=== PATIENT | female | born 1935 | race Caucasian/White ===

== ENCOUNTER 2019-05-14 11:35 | Outpatient (CLI) | payer MEDICARE, SELFPAY ==
[2019-05-14 14:02] LABS: Blood Urea Nitrogen 16 mg/dL (8-23)
[2019-05-14] MEDS: iodixanol 320 mg/mL 100mL Btl IV (14:15)
--- NOTE | 2019-05-14 14:30 | CT_ITS ---
WS: [id number] CT CHEST TECHNIQUE: Contrast enhanced CT of the chest with coronal and sagittal reformatted images. CLINICAL INFORMATION: lung mass COMPARISON: CT September 28, 2018 DLP: 350.[address] scans at [facility] use at least one of these dose optimization techniques: automat ed exposure control; mA and/or kV adjustment per patient size (includes targeted exams where dose is matched to clinical indication); or iterative reconstruction. FINDINGS: Mild chronic emphysematous changes. No acute pulmonary infiltrates. Stable 5 mm subpleural opacity ri ght lower lobe laterally near the diaphragm. No other suspicious pulmonary parenchymal opacities. Nor mal caliber thoracic aorta. Vascular calcification including coronary. No mediastinal or hilar lymphadenopathy. Normal endobronch ial tree. No axillary lymphadenopathy. Normal visualized upper abdominal aorta with mild aortic calcification. Mild thoracic kyphosis. A few lucent lesions in the thoracic spine are unchanged. These may represent small atypical hemangiomas. CT/CT chest w con* [id number] IMPRESSION: 1. Stable 5 mm subpleural pulmonary nodule in the right lower lobe laterally. Recommend 12 month follow-up. 2. Mild chronic emphysematous changes. 3. No acute pulmonary infiltrates. 4. Vascular calcification including coronary.
== END 2019-05-14 11:36 | disposition home or self-care (01) ==
PROVIDERS: Family Provider Family Medicine; PCP Family Medicine; Visit Provider Thoracic Surgery (Cardiothoracic Vascular Surgery)
DX: R91.1 Solitary pulmonary nodule (principal); I25.10 Atherosclerotic heart disease of native coronary artery without angina pectoris
CPT/HCPCS: 36415; 71260; 82565; 84520

== ENCOUNTER 2020-02-25 14:08 | Outpatient (CLI) | payer MEDICARE, SELFPAY ==
--- NOTE | 2020-02-25 14:14 | XR_ITS ---
WS: [id number] Exam: XR DEXA axial skeleton* [id number] Date/Time of Exam: 02/25/2020 2:26 PM Reason For Exam: ASYMPTOMATIC MENOPAUSAL STATE DEXA BONE DENSITOMETRY Starline The L1-L4 bone mineral density measures 1.500 g/cm2. This corresponds to a T score of 2.7 and Z score of 5.0. Left femoral neck bone mineral density measures 0.828 g/cm2. This corresponds to T score of -1.4 and Z score of 1.1. Right femoral neck bone mineral density measures 0.843 g/cm2. This corresponds to a T score of -1.3 a nd Z score of 1.2. Mean femoral neck bone mineral density measures 0.836 g/cm2. This corresponds to a T score of -1.4 an d Z score of 1.2 XR/XR DEXA axial skeleton* [id number] IMPRESSION: Bone mineral density lies in the osteopenic range. Refer to detailed summary.
== END 2020-02-25 14:09 | disposition home or self-care (01) ==
PROVIDERS: Family Provider Family Medicine; PCP Family Medicine; Visit Provider Family Medicine
DX: Z78.0 Asymptomatic menopausal state (principal)
CPT/HCPCS: 77080

== ENCOUNTER 2020-07-29 12:45 | Outpatient (CLI) | payer MEDICARE, SELFPAY ==
--- NOTE | 2020-07-29 13:00 | CT_ITS ---
WS: [id number] CT CHEST WITH INTRAVENOUS CONTRAST HISTORY: R91.8 - Other nonspecific abnormal finding of lung field TECHNIQUE: Contiguous 5 mm axial imaging performed on the thorax. Coronal and sagittal reformats are submitted. All CT scans at [facility] use at least one of these dose optimization techniq ues: automated exposure control; mA and/or kV adjustment per patient size (includes targeted exams wh ere dose is matched to clinical indication); or iterative reconstruction. CONTRAST: Visipaque 320; 95 mL IV. DLP: 542.72 mGycm COMPARISON: 05/14/2019 and 09/28/2018 Lungs and central airway: Mild chronic emphysema. Subpleural nodule in the RIGHT lower lobe with pleu ral hiding measuring 5 mm is stable over several prior years. There is an additional stable 4 mm nodu le in the LEFT lower lobe. No new or increasing size of pulmonary nodules. Pleura: Normal. No pleural effusion. Heart and pericardium: Mild enlargement of the heart chambers. No pericardial effusion. Mediastinum and dmitriy: No mediastinum or hilar adenopathy. Vessels: Mild atherosclerosis of aorta. Pulmonary artery is slightly enlarged. Chest wall and lower neck: No soft tissue masses. Upper abdomen: Visualized liver is negative. No adrenal mass. Cortical thinning upper pole of each ki dney. Osseous structures: Atherosclerotic changes continue into the suprarenal aorta. Slight increased thor acic kyphosis. CT/CT chest w con* [id number] IMPRESSION: 1. No change in the subpleural nodule in the RIGHT lower lobe over multiple pr ior years. Due to long-term stability no additional follow-up necessary. 2. Chronic emphysema and atherosclerosis aorta. No adenopathy. 3. Mild cardiomegaly.
[2020-07-29 13:25] LABS: Blood Urea Nitrogen 13 mg/dL (8-23)
[2020-07-29] MEDS: iohexol 300 mg/mL 100 mL Btl IV (13:36)
== END 2020-07-29 12:46 | disposition home or self-care (01) ==
PROVIDERS: PCP Family Medicine; Visit Provider Thoracic Surgery (Cardiothoracic Vascular Surgery)
DX: R91.8 Other nonspecific abnormal finding of lung field (principal); R91.1 Solitary pulmonary nodule; J43.9 Emphysema, unspecified; I70.0 Atherosclerosis of aorta; I51.7 Cardiomegaly
CPT/HCPCS: 71260; 82565; 84520; Q9967

== ENCOUNTER → 2021-11-16 09:02 | Day surgery (SDC) | payer MEDICARE, SELFPAY ==
[2021-11-16] VITALS (9 sets, daily range): BP systolic 117–152; BP diastolic 60–77; PULSE 72–100; RESP 18; TEMP 36.3–37; O2SAT 93–96; BMI 21.2
[2021-11-16] MEDS: diphenhydrAMINE 25 mg Capsule PO (09:38)
[2021-11-16] MEDS: acetaminophen 500 mg Tablet 1000 MG PO (09:38)
[2021-11-16] MEDS: sodium chloride 0.9% (100 ml) 100 ML 10 ML ×2 (11:56→13:34)
[2021-11-16] MEDS: FUROsemide 10 mg/mL SDV 2mL 20 MG IVP (13:17)
== END ==
PROVIDERS: PCP Family Medicine; Visit Provider Family Medicine
DX: K92.2 Gastrointestinal hemorrhage, unspecified (principal); D64.9 Anemia, unspecified
CPT/HCPCS: 36415; 36430; 86850; 86900; 86920; J1940; P9040

== ENCOUNTER 2023-12-10 07:30 | Emergency (ER) | payer MEDICARE, SELFPAY ==
[2023-12-10] VITALS (17 sets, daily range): BP systolic 102–208; BP diastolic 56–149; PULSE 86–117; RESP 18–36; TEMP 37.4–39.5; O2SAT 90–99
--- NOTE | 2023-12-10 07:41 | CTR_ITS ---
PROCEDURE INFORMATION: Exam: CTA Head With Contrast, Arteriography Exam date and time: 12/10/2023 7:35 AM Age: 88 years old Clinical indication: Stroke-like symptoms; Altered mental status/memory loss; Additional info: Symptoms of CVA TECHNIQUE: Imaging protocol: Computed tomographic angiography of the head with contrast. Exam focused on the arteries. 3D rendering (Not supervised by radiologist): MIP and/or 3D reconstructed images were created by the technologist. Radiation optimization: All CT scans at this facility use at least one of these dose optimization techniques: automated exposure control; mA and/or kV adjustment per patient size (includes targeted exams where dose is matched to clinical indication); or iterative reconstruction. Contrast material: OMNI 350; Contrast volume: 100 ml; Contrast route: INTRAVENOUS (IV); COMPARISON: CT head thrombolytic [id number] 12/10/2023 7:30 AM RADIATION DOSE METRICS: Total DLP (mGy-cm): 568.19 FINDINGS: ANTERIOR CIRCULATION: Right internal carotid artery: Plaque without high-grade stenosis. No aneurysm. Right middle cerebral artery: No occlusion or significant stenosis. No aneurysm. Right anterior cerebral artery: The A1 segment is atretic. The distal right anterior cerebral artery is primarily supplied via a patent anterior communicating artery. No aneurysm. Left internal carotid artery: Plaque without high-grade stenosis. No aneurysm. Left middle cerebral artery: No occlusion or significant stenosis. No aneurysm. Left anterior cerebral artery: No occlusion or significant stenosis. No aneurysm. POSTERIOR CIRCULATION: Right vertebral artery: No occlusion or significant stenosis. No aneurysm. Left vertebral artery: No occlusion or significant stenosis. No aneurysm. Basilar artery: No occlusion or significant stenosis. No aneurysm. Right posterior cerebral artery: No occlusion or significant stenosis. No aneurysm. Left posterior cerebral artery: No occlusion or significant stenosis. No aneurysm. Brain: No definite mass, mass effect, or midline shift. Cerebral ventricles: No ventriculomegaly. Bones/joints: Unremarkable. No acute fracture. Soft tissues: Unremarkable. PROCEDURE INFORMATION: Exam: CTA Neck With Contrast Exam date and time: 12/10/2023 7:35 AM Age: 88 years old Clinical indication: Stroke-like symptoms; Altered mental status/memory loss; Additional info: Symptoms of CVA TECHNIQUE: Imaging protocol: Computed tomographic angiography of the neck with contrast. Exam focused on the cervical segments of the vasculature. 3D rendering (Not supervised by radiologist): MIP and/or 3D reconstructed images were created by the technologist. Radiation optimization: All CT scans at this facility use at least one of these dose optimization techniques: automated exposure control; mA and/or kV adjustment per patient size (includes targeted exams where dose is matched to clinical indication); or iterative reconstruction. Contrast material: OMNI 350; Contrast volume: 100 ml; Contrast route: INTRAVENOUS (IV); COMPARISON: CT head thrombolytic [id number] 12/10/2023 7:30 AM RADIATION DOSE METRICS: Total DLP (mGy-cm): 568.19 FINDINGS: Right common carotid artery: No stenosis. No dissection or occlusion. Right internal carotid artery: Mild plaque without high-grade stenosis. Right external carotid artery: No occlusion or stenosis of the origin. Left common carotid artery: No stenosis. No dissection or occlusion. Left internal carotid artery: Mild plaque without high-grade stenosis. Left external carotid artery: No occlusion or stenosis of the origin. Right vertebral artery: Mild plaque at the origin without high-grade stenosis. The right vertebral artery is dominant. Left vertebral artery: No stenosis. No dissection or occlusion. Soft tissues: Normal. No significant soft tissue swelling. Bones/joints: No acute fracture. CT/CT angio headneck* [id number] IMPRESSION: No large vessel stenosis or occlusion. IMPRESSION: No stenosis or occlusion. REFERENCES: NASCET CRITERIA. The degree of stenosis in the cervical segment of the internal carotid artery is based on NASCET criteria. Normal is no stenosis. Mild is less than 50% stenosis. Moderate is 50-69% stenosis. Severe is 70% to 99% stenosis. Total occlusion is no detectable patent lumen.
--- NOTE | 2023-12-10 07:41 | CTR_ITS ---
PROCEDURE INFORMATION: Exam: CT Head Without Contrast Exam date and time: 12/10/2023 7:30 AM Age: 88 years old Clinical indication: Stroke-like symptoms; Left facial droop; Additional info: Symptoms of acute stroke TECHNIQUE: Imaging protocol: Computed tomography of the head without contrast. Radiation optimization: All CT scans at this facility use at least one of these dose optimization techniques: automated exposure control; mA and/or kV adjustment per patient size (includes targeted exams where dose is matched to clinical indication); or iterative reconstruction. Other technique: STROKE PROTOCOL was implemented. COMPARISON: No relevant prior studies available. RADIATION DOSE METRICS: Total DLP (mGy-cm): 890.88 FINDINGS: Brain: There is prominence of the subarachnoid spaces compatible with atrophy. There is small-vessel ischemic change within the periventricular white matter. Cerebral ventricles: No ventriculomegaly. Paranasal sinuses: There is minimal mucosal thickening involving the paranasal sinuses. No air-fluid levels are identified. Mastoid air cells: Visualized mastoid air cells are well aerated. Bones: Unremarkable. No acute fracture. Soft tissues: Unremarkable. CT/CT head thrombolytic [id number] IMPRESSION: 1. Atrophy with small-vessel ischemic change. No definite acute intracranial findings. ASSESSMENT: ASPECTS ([place] Stroke Program Early CT Score) is 10.
--- NOTE | 2023-12-10 07:51 | XRR_ITS ---
PROCEDURE INFORMATION: Exam: XR Chest Exam date and time: 12/10/2023 8:01 AM Age: 88 years old Clinical indication: Cough and dyspnea; Additional info: Dyspnea/cough TECHNIQUE: Imaging protocol: Radiologic exam of the chest. Views: 1 view. COMPARISON: CT chest w con* [id number] 07/29/2020 1:29 PM FINDINGS: Lungs: Minimal linear scarring or atelectasis noted involving the lingula. No consolidated infiltrates are noted. Pleural spaces: Unremarkable. No pleural effusion. No pneumothorax. Heart/Mediastinum: The heart is enlarged. There is calcified plaque involving the aorta. Bones/joints: Old rib fracture noted on the right. XR/XR chest 1V portable [id number] IMPRESSION: 1. Cardiomegaly. 2. Minimal linear scarring or atelectasis involving the lingula.
--- NOTE | 2023-12-10 07:51 | ED_ITS ---
HPI - Neuro Symptoms/Deficit 2 General: Chief Complaint: Neuro Symptoms/Deficit Stated Complaint: left facial droop Time Seen by Provider: 12/10/23 07:30 History of Present Illness: 80-year-old female presents emergency ro om with reported last known well approximately 2230 last night was found by her daughter this morning nonresponsive EMS was called EMS called and a stroke alert reporting a left- sided facial droop. On arrival I seen patient in the CT suite. Initial evaluation she is nonresponsive to verbal stimuli does respond to painful stimuli. She has bawling sonorous respirations is moving all 4 extremities equally appears to have a bit of right sided facial droop. She cannot give any history. Minimal history in the old chart Related Data Home Medications Medication Instructions Recorded Confirmed amlodipine 10 mg tablet 10 mg PO DAILY 11/16/21 11/16/21 clopidogrel 75 mg tablet 75 mg PO DAILY 11/16/21 11/16/21 lisinopril 20 mg tablet 20 mg PO DAILY 11/16/21 11/16/21 metoprolol tartrate 50 mg tablet 50 mg PO DAILY 11/16/21 11/16/21 omeprazole 20 mg capsule,delayed 20 mg PO DAILY 11/16/21 11/16/21 release tramadol 50 mg tablet 50 mg PO DAILY 11/16/21 11/16/21 Allergies Allergy/AdvReac Type Severity Reaction Status Date / Time Penicillins Allergy ADR-Faintin Verified 11/16/21 09:40 g Review of Systems 2 General: Reports: ROS unobtainable due to medical condition and ROS unobtainable due to mental status [facility] ED 2 PFS: Medical History (Updated 12/12/23 @ 06:47 by Bandar Weller DO) CHF (congestive heart failure) Atrial fibrillation GERD (gastroesophageal reflux disease) HTN (hypertension) NIH stroke score 2 NIHSS: Level Of Consciousness - 1a: 3 Level Of Consciousness Questions - 1b: Neither Correct Level Of Consciousness Commands - 1c: Neither Correct Best Gaze - 2: Forced Deviation Visual Neumann - 3: Partial Hemianopia F acial Palsy - 4: Minor Paralysis Motor Arm Right - 5: No Drift Motor Arm Left - 5: No Drift Motor Leg Right - 6: No Drift Motor Leg Left - 6: No Drift Limb Ataxia - 7: Absent (Difficult to assess as patient cannot follow commands but moves all 4 extremities) Sensory - 8: Normal Best Language - 9: Mute; Global Aphasia Dysarthia - 10: Severe Dysarthia Extinction And Inattention - 11: 2 Score: Total Score: 18 Physical Exam 2 Const: ORIENTATION/CONSCIOUSNESS: Yes awake HENMT: COMMON NORMALS: normocephalic, atraumatic and hearing grossly normal bilaterally HEAD & SCALP: normocephalic and atraumatic Resp: COMMON NORMALS: normal respiratory effort, No retractions, No use of accessory muscles and clear to auscultation bilaterally AUSCULTATION: clear to auscultation bilaterally Cardio: COMMON NORMALS: regular rate, regular rhythm and No murmurs present (Cardio) RATE: regular rate RHYTHM: regular rhythm GI: COMMON NORMALS: Soft to palpation and No hepatosplenomegaly present A USCULTATION: Yes normoactive bowel sounds PALPATION: Yes Soft to palpation, No Tenderness to palpation present (GI), No Guarding due to palpation present (GI) and Yes No hepatosplenomegaly present Extremity: COMMON NORMALS: normal to inspection, capillary refill normal, no clubbing, cyanosis or edema, no calf tenderness and no pedal edema Skin: COMMON NORMALS: no rashes or lesions noted GENERAL SKIN EXAM: no rashes or lesions noted Course 2 Vital Signs: Vital signs: Vital Signs Temperature 99.3 F 12/10/23 21:56 Pulse Rate 94 12/10/23 22:09 Respiratory Rate 25 H 12/10/23 22:09 Blood Pressure 139/56 12/10/23 22:09 Pulse Oximetry 99 12/10/23 22:09 Oxygen Delivery Me thod Room Air 12/10/23 22:09 MDM - Neuro Symptoms/Deficit Medical Decision Making Patient is unresponsive she does intentionally move all extremities repositions herself using her arms and legs intentionally to avoid noxious stimuli. She has Bohling respirations with weakness on the right side of her face. Several assumptions made in scoring her on her NIH we get an 18. However she is outside of the window for any thrombolytics. No large vessel occlusion on CTA my suspicion is when initially seeing her that she may be septic. She is tachycardic and running a fever however she is also hypertensive. No acute findings on initial CT of the head. Patient was recently hospitalized at [facility] family did arrive later confirmed the last known well. They state that she was treated for a bladder infection in [place] we had already called for records from [place] it did take several hours to get this. Family also states that while they were in [place] a few days ago they had done a tick panel and they had told the family they thought it might be a tickborne illness. She had scans and labs done there CT scans were reported to them is normal the rest of her labs are also reported as normal. Ultimately we did get the records from [place] she had been on Vanco and meropenem which is what we had already started her on here. They had grown out E. coli in urine according to the discharge summary and adjust her medications based on the sensitivities panel from the urine culture. Based on her CT I suspect she is more septic and does not have an acute CVA. Since she is outside the window for thrombolytics and is not a embolectomy candidate that would just need to be monitored at this point. She did begin running relatively high fever up to 10 3.1. Respiratory panel was done as well was negative for COVID or other respiratory viral illnesses. Family requested transfer to [facility] because she was seen there previously. We also made attempts to get lab work from [place]. At change of shift she had been accepted at [facility] we had not received any records from [place] yet. We have a bed assignment we are pending transportation. Antibiotics have been initiated have discussed with the oncoming physician he will continue antibiotics until transfer is affected. Medical Records I reviewed the patient's medical records. Lab Data I reviewed the patient's lab results. 12/10/23 09:05 12/10/23 11:[address] 12/10/23 07:41 IMPRESSION: 1. Atrophy with small-vessel ischemic change. No definite acute intracranial findings. ASSESSMENT: ASPECTS ([place] Stroke Program Early CT Score) is 10. ADDENDUM: 12/10/23 0755 COMMENT: THIS REPORT CONTAINS FINDINGS THAT MAY BE CRITICAL TO PATIENT CARE. The exam findings were verbally communicated by me to BANDAR WELLER via telephone conference at 7:53 AM CDT on 12/10/2023. The findings were acknowledged and understood. Head/Neck CTA 12/10/23 07:41 IMPRESSION: No large vessel stenosis or occlusion. IMPRESSION: No stenosis or occlusion. REFERENCES: NASCET CRITERIA. The degree of stenosis in the cervical segment of the internal carotid artery is based on NASCET criteria. Normal is no stenosis. Mild is less than 50% stenosis. Moderate is 50-69% stenosis. Severe is 70% to 99% stenosis. Total occlusion is no detectable patent lumen. Chest X-Ray 12/10/23 07:51 IMPRESSION: 1. Cardiomegaly. 2. Minimal linear scarring or atelectasis involving the lingula. Chest/Abdomen/Pelvis CT 12/10/23 10:07 IMPRESSION: No acute findings. IMPRESSION: No acute findings. Laboratory Results WBC 18.10 10^3/uL (3.29-11.43) H 12/10/23 09:05 RBC 4.06 10^6/uL (3.85-5.65) 12/10/23 09:05 Hgb 12.20 g/dL (11.27-16.99) 12/10/23 09:05 Hct 38.9 % (36-47) 12/10/23 09:05 MCV 95.8 fl (85-98) 12/10/23 09:05 MCH 30.0 pg (27-33) 12/10/23 09:05 MCHC 31.4 g/dL (30-55) 12/10/23 09:05 RDW 13.2 % (12.1-15.1) 12/10/23 09:05 Plt Count 281 10^3/cmm (157-399) 12/10/23 09:05 MPV 10.4 fL (7.4-10.4) 12/10/23 09:05 Neut % (Auto) 89.2 % 12/10/23 09:05 Lymph % (Auto) 5.7 % 12/10/23 09:05 [place] % (Auto) 3.7 % 12/10/23 09:05 Eos % (Auto) 0.1 % 12/10/23 09:05 Baso % (Auto) 0.3 % 12/10/23 09:05 Neut # (Auto) 16.13 10^3/uL (1.8-7.7) H 12/10/23 09:05 Lymph # (Auto) 1.0 10^3/uL (0.8-4.8) 12/10/23 09:05 [place] # (Auto) 0.7 10^3/uL (0.2-0.9) 12/10/23 09:05 Eos # (Auto) 0.0 10^3/uL (0.0-0.8) 12/10/23 09:05 Baso # (Auto) 0.1 10^3/uL (0.0-0.1) 12/10/23 09:05 Nucleated RBC % (auto) 0 % 12/10/23 09:05 Nucleated RBCs # 0.0 /100WBC 12/10/23 09:05 ESR 120 mm/hr (0-15) H 12/10/23 09:05 PT 15.30 SECONDS (12.1-14.9) H 12/10/23 11:40 INR 1.17 (0.8-1.2) 12/10/23 11:40 APTT 31.3 SECONDS (23.9-36.7) 12/10/23 11:40 Specimen Type Arterial 12/10/23 08:08 Sample Site Brachial, left 12/10/23 08:08 ABG pH 7.48 (7.35-7.45) H 12/10/23 08:08 ABG pCO2 40.0 mmHg (35-45) 12/10/23 08:08 ABG pO2 60.5 mmHg (80.0-100.0) L 12/10/23 08:08 ABG PO2/FiO2 Ratio 288 12/10/23 08:08 ABG HCO3 29.7 mmol/L (22-26) H 12/10/23 08:08 ABG O2 Saturation 92.1 12/10/23 08:08 ABG Base Excess 5.7 mmol/L (-2.0-2.0) H 12/10/23 08:08 Mg Test Pos 12/10/23 08:08 A-a O2 Gradient 5.2 mmHg (5-10) 12/10/23 08:08 Hematocrit 37.6 % (37-47) 12/10/23 08:08 Hgb O2 Saturation 90.4 % (95-100) L 12/10/23 08:08 Carboxyhemoglobin 0.8 %THgb (0.4-20.1) 12/10/23 08:08 Methemoglobin 1.1 % (0.4-1.5) 12/10/23 08:08 Total Hemoglobin 12.3 g/dL (12-16) 12/10/23 08:08 Sodium 126.0 mmol/L (131-143) L 12/10/23 08:08 Potassium 4.2 mmol/L (3.5-5.0) 12/10/23 08:08 Glucose 146.0 mg/dL (70-115) H 12/10/23 08:08 Ionized Calcium 1.1 mmol/L (1.1-1.4) 12/10/23 08:08 O2 Delivery Device Room air 12/10/23 08:08 FiO2 21.0 % 12/10/23 08:08 Motion Graphics Designer ID Cak 12/10/23 08:08 Sodium 128 mmol/L (136-145) L 12/10/23 11:40 Potassium 3.7 mmol/L (3.5-5.1) 12/10/23 11:40 Chloride 88 mmol/L (98-107) L 12/10/23 11:40 Carbon Dioxide 25 mmol/L (22-29) 12/10/23 11:40 Anion Gap 18.7 (5-19) 12/10/23 11:40 BUN 16 mg/dL (8-23) 12/10/23 11:40 Creatinine 1.1 mg/dL (0.5-0.9) H 12/10/23 11:40 GFR Calculation Not Reportable 12/10/23 11:40 Glucose 163 mg/dL (65-115) H 12/10/23 11:40 POC Glucose 137 mg/dL (70-110) H 12/10/23 17:04 Calculated Osmolality 271 mOsm/kg (285-295) L 12/10/23 11:40 Lactic Acid 2.0 mmol/L (0.5-2.2) 12/10/23 11:40 Calcium 8.0 mg/dL (8.5-10.5) L 12/10/23 11:40 Total Bilirubin 0.6 mg/dL (0.15-1.2) 12/10/23 11:40 AST 30 U/L (0-32) 12/10/23 11:40 ALT 30 U/L (0-33) 12/10/23 11:40 Alkaline Phosphatase 77 U/L (35-105) 12/10/23 11:40 Creatine Kinase 111 U/L (26-192) 12/10/23 11:40 Troponin T Baseline 26 ng/L (0-10) H 12/10/23 09:05 Troponin T 120 Minute 28.99 ng/L (0-10) H 12/10/23 11:40 Delta Troponin T 2.99 ABS# (0-10) 12/10/23 11:40 Troponin T Hi Sens 6Hr 34.13 ng/L (0-10) H 12/10/23 15:14 Troponin T Hi Sens 6Hr Delta 8.13 ng/L (0-12) 12/10/23 15:14 C-Reactive Protein 16.9 mg/L (0.0-4.9) H 12/10/23 11:40 Total Protein 6.9 g/dL (6.6-8.7) 12/10/23 11:40 Albumin 3.7 g/dL (3.5-5.2) 12/10/23 11:40 Globulin 3.2 g/dL (1.3-4.6) 12/10/23 11:40 Lipase 35 U/L (13-60) 12/10/23 11:40 Urine Color Yellow (Yellow) 12/10/23 08:20 Urine Appearance Clear (CLEAR) 12/10/23 08:20 Urine pH 6.5 (5-7) 12/10/23 08:20 Ur Specific [place] 1.027 (1.005-1.030) 12/10/23 08:20 Urine Protein Trace (Negative) A 12/10/23 08:20 Urine Glucose (UA) Negative (Normal) 12/10/23 08:20 Urine Ketones Negative (Negative) 12/10/23 08:20 Urine Blood Non-haemolysed trace (Negative) 12/10/23 08:20 Urine Nitrate Negative (Negative) 12/10/23 08:20 Urine Bilirubin Negative (Negative) 12/10/23 08:20 Urine Urobilinogen 0.2 mg/dL (Negative) 12/10/23 08:20 Ur Leukocyte Esterase Negative (Negative) 12/10/23 08:20 Urine RBC 0-2 /hpf (0-2) 12/10/23 08:20 Urine WBC 0-5 /hpf (0-5) 12/10/23 08:20 Ur Squamous Epith Cells 11-20 /hpf (0-5) 12/10/23 08:20 Amorphous Sediment Not Reportable 12/10/23 08:20 Urine Bacteria None seen /hpf (NONE) 12/10/23 08:20 Hyaline Casts 1.62 /lpf 12/10/23 08:20 Urine Opiates Screen Negative ng/mL (Negative) 12/10/23 08:20 Ur Barbiturates Screen Negative ng/mL (Negative) 12/10/23 08:20 Ur Phencyclidine Scrn Negative ng/mL (Negative) 12/10/23 08:20 Ur Amphetamines Screen Negative ng/mL (Negative) 12/10/23 08:20 U Benzodiazepines Scrn Negative ng/mL (Negative) 12/10/23 08:20 Urine Cocaine Screen Negative ng/mL (Negative) 12/10/23 08:20 U Marijuana (THC) Screen Negative ng/mL (Negative) 12/10/23 08:20 Adenovirus (PCR) Not detected (NOT DETECT) 12/10/23 13:46 C. pneumoniae DNA (PCR) Not detected (NOT DETECT) 12/10/23 13:46 Coronavirus 229E (PCR) Not detected (NOT DETECT) 12/10/23 13:46 Human Metapneumovir PCR Not detected (NOT DETECT) 12/10/23 13:46 Influenza A (H1) PCR Not detected (NOT DETECT) 12/10/23 13:46 Influ A (H1/09) PCR Not detected (NOT DETECT) 12/10/23 13:46 Influenza A (H3) PCR Not detected (NOT DETECT) 12/10/23 13:46 Influenza Type A (PCR) Not detected (NOT DETECT) 12/10/23 13:46 Influenza Type B (PCR) Not detected (NOT DETECT) 12/10/23 13:46 M. pneumoniae (PCR) Not detected (NOT DETECT) 12/10/23 13:46 Parainfluenza 1 (PCR) Not detected (NOT DETECT) 12/10/23 13:46 Parainfluenza 2 (PCR) Not detected (NOT DETECT) 12/10/23 13:46 Parainfluenza 3 (PCR) Not detected (NOT DETECT) 12/10/23 13:46 Parainfluenza 4 (PCR) Not detected (NOT DETECT) 12/10/23 13:46 RSV Type A (PCR) Not detected (NOT DETECT) 12/10/23 13:46 RSV Type B (PCR) Not detected (NOT DETECT) 12/10/23 13:46 Entero/Rhino (PCR) Not detected (NOT DETECT) 12/10/23 13:46 SARS-CoV-2 (PCR) Not detected (NOT DETECT) 12/10/23 13:46 All radiology interpretation(s) finalized by discharge Discharge Plan Discharge Patient Disposition: Xfer Short-Term Hosp Clinical Impression: Septicemia, Altered mental status Condition: Stable Referrals: Chiquita Martinez MD [Primary Care Provider] - Coding Level of Care Code ED [employer] for Marianne John
--- NOTE | 2023-12-10 07:53 | ECG_ITS ---
[facility] Test Date: 2023-12-10 Pat Name: Amisha Lopez Department: Room: Gender: Female [employer] Manager: : 1935 Requested By: Bandar Morrell Order Number: [id number] Rajesh MD: Chris Eckert M.D. Measurements Intervals [place] Rate: 93 P: 0 GA: 0 QRS: -31 QRSD: 90 T: -14 QT: 327 QTc: 407 Interpretive Statements ATRIAL FIBRILLATION LEFT AXIS DEVIATION [QRS AXIS < -30] POSSIBLE RIGHT VENTRICULAR CONDUCTION DELAY [RSR (QR) IN V1/V2] SEPTAL MYOCARDIAL INFARCTION , OF INDETERMINATE AGE [40+ ms Q WAVE IN V1/V2] MODERATE T-WAVE ABNORMALITY, CONSIDER ANTERIOR ISCHEMIA [-0.1+ mV T-WAVE IN V3/V4] No previous ECG available for comparison Electronically Signed On 12-10-2023 10:38:51 CDT by Chris Eckert M.D. [id number]
[2023-12-10 08:19] LABS: ABG PH Result 7.48 (7.35-7.45); Alveolar-Arterial Oxygen Gradi 5.2 mmHg (5-10); Arterial Blood Gas Hematocrit 37.6 % (37-47); Base Excess ABG 5.7 mmol/L (-2.0-2.0); Blood Gas Allen Test Pos; Blood Gas Operator Identificat CAK; Blood Gas Sample Site Brachial, left; Blood Gas Sample Type Arterial; Carboxyhemoglobin 0.8 %THgb (0.4-20.1); HCO3 ABG 29.7 mmol/L (22-26); HGB O2 Sat 90.4 % (95-100); Ionized Calcium Level - ABG 1.1 mmol/L (1.1-1.4); Methemoglobin 1.1 % (0.4-1.5); Oxygen Device ROOM AIR; Oxygen Saturation ABG 92.1; PO2 ABG 60.5 mmHg (80.0-100.0); PO2 FiO2 Ratio Arterial Blood 288; Potassium Level - ABG 4.2 mmol/L (3.5-5.0); Total Hemoglobin 12.3 g/dL (12-16)
[2023-12-10 08:24] LABS: Charge for UA Resulting for Rev
[2023-12-10 08:31] LABS: Bilirubin Urine Negative (Negative); Blood Urine Non-haemolysed trace (Negative); Glucose Urine UA Negative (Normal); Ketones Urine Negative (Negative); Leukocyte Esterase Urine Negative (Negative); Nitrate Urine Negative (Negative); Protein Urine Trace (Negative); Specific Gravity, Urine 1.027 (1.005-1.030); Urine Appearance Clear (CLEAR); Urine Color Yellow (Yellow); Urobilinogen Urine 0.2 mg/dL (Negative); pH Urine 6.5 (5-7)
[2023-12-10 08:35] LABS: Bacteria Urine None Seen /hpf; Hyaline Casts Urine 1.62 /lpf; RBC Urine 0-2 /hpf (0-2); WBC Urine 0-5 /hpf (0-5)
[2023-12-10 08:37] LABS: Amphetamines Screen Urine Negative (Negative); Barbiturates Screen Urine Negative (Negative); Benzodiazepines Screen Urine Negative (Negative); Cocaine Screen Urine Negative (Negative); Opiate Screen Urine Negative (Negative); PCP Screen Urine Negative (Negative); THC Screen Urine Negative (Negative)
[2023-12-10 08:59] LABS: UA Slide Review UA Slide Review Perf
[2023-12-10 09:19] LABS: Basophils # 0.1 10^3/uL (0.0-0.1); Basophils % 0.3 %; Eosinophils % 0.1 %; Hematocrit 38.9 % (36-47); Lymphocytes % 5.7 %; Mean Corpuscular HGB Conc 31.4 g/dL (30-55); Mean Corpuscular Volume 95.8 fl (85-98); Mean Platelet Volume 10.4 fL (7.4-10.4); Monocytes # 0.7 10^3/uL (0.2-0.9); Monocytes % 3.7 %; Neutrophils # 16.13 10^3/uL (1.8-7.7); Neutrophils % 89.2 %; Nucleated Red Blood Cells % 0 %; Platelet Count 281 10^3/cmm (157-399); Red Blood Count 4.06 10^6/uL (3.85-5.65); Red Cell Distribution Width 13.2 % (12.1-15.1)
[2023-12-10 09:43] LABS: Troponin(5th) Baseline 26 ng/L (0-10)
[2023-12-10] MEDS: nicardipine 20 MG/200 ML PREMIX 50 MG IV (09:51)
--- NOTE | 2023-12-10 10:07 | CTR_ITS ---
PROCEDURE INFORMATION: Exam: CTA Chest With Contrast Exam date and time: 12/10/2023 12:46 PM Age: 88 years old Clinical indication: Other: Tachycardia, hypoxia, unresponsive TECHNIQUE: Imaging protocol: Computed tomographic angiography of the chest with contrast. Exam focused on the arteries. 3D rendering (Not supervised by radiologist): MIP and/or 3D reconstructed images were created by the technologist. Radiation optimization: All CT scans at this facility use at least one of these dose optimization techniques: automated exposure control; mA and/or kV adjustment per patient size (includes targeted exams where dose is matched to clinical indication); or iterative reconstruction. Contrast material: OMNI 350; Contrast volume: 75 ml; Contrast route: INTRAVENOUS (IV); COMPARISON: CT chest w con* [id number] 07/29/2020 1:29 PM RADIATION DOSE METRICS: Total DLP (mGy-cm): 811.86 FINDINGS: Pulmonary arteries: No pulmonary embolus. 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 Lungs: Dependent atelectasis in each lower lobe. Pleural spaces: Unremarkable. No pneumothorax. No pleural effusion. Heart: Unremarkable. No cardiomegaly. No pericardial effusion. Lymph nodes: Unremarkable. No enlarged lymph nodes. Bones/joints: Unremarkable. No acute fracture. Soft tissues: Unremarkable. Other findings: No evidence of dissection. PROCEDURE INFORMATION: Exam: CT Abdomen And Pelvis With Contrast Exam date and time: 12/10/2023 12:46 PM Age: 88 years old Clinical indication: Other: Tachycardia, hypoxia, unresponsive TECHNIQUE: Imaging protocol: Computed tomography of the abdomen and pelvis with contrast. Radiation optimization: All CT scans at this facility use at least one of these dose optimization techniques: automated exposure control; mA and/or kV adjustment per patient size (includes targeted exams where dose is matched to clinical indication); or iterative reconstruction. Contrast material: OMNI 350; Contrast volume: 75 ml; Contrast route: INTRAVENOUS (IV); COMPARISON: CT chest w con* [id number] 07/29/2020 1:29 PM RADIATION DOSE METRICS: Total DLP (mGy-cm): 1065 FINDINGS: Liver: Normal. No mass. Gallbladder and biliary ducts: Normal. No calcified stones. No ductal dilation. Pancreas: Normal. No ductal dilation. Spleen: Normal. No splenomegaly. Adrenal glands: Normal. No mass. Kidneys and ureters: Normal. No hydronephrosis. Stomach and bowel: Unremarkable. No obstruction. No mucosal thickening. Appendix: No evidence of appendicitis. Intraperitoneal space: Unremarkable. No free air. No significant fluid collection. Vasculature: Unremarkable. No abdominal aortic aneurysm. Lymph nodes: Unremarkable. No enlarged lymph nodes. Urinary bladder: The urinary bladder is collapsed around a York catheter. Reproductive: Unremarkable as visualized. Bones/joints: Unremarkable. No acute fracture. Soft tissues: Unremarkable. CT/CT angio chest w abd pel w con IMPRESSION: No acute findings. IMPRESSION: No acute findings.
[2023-12-10] MEDS: meropenem 1,000 mg SDV 1000 MG IVP ×2 (10:35→19:19)
[2023-12-10] MEDS: vancomycin 1,000 MG in sodium chloride 0.9% 250 ML 250 MG IV ×2 (10:38→19:19)
[2023-12-10] MEDS: acetaminophen 1,000 MG/100 ML PIGGYBACK 400 MG IV ×2 (12:05→20:45)
[2023-12-10 12:12] LABS: INR 1.17 (0.8-1.2); Partial Thromboplastin Time 31.3 SECONDS (23.9-36.7)
[2023-12-10 12:19] LABS: Troponin 5 2HR 28.99 ng/L (0-10); Troponin 5 2HR Delta 2.99 ABS# (0-10)
[2023-12-10 12:26] LABS: Alanine Aminotransferase 30 U/L (0-33); Albumin Level 3.7 g/dL (3.5-5.2); Alkaline Phosphatase 77 U/L (35-105); Anion Gap 18.7 (5-19); Aspartate Amino Transferase 30 U/L (0-32); Blood Urea Nitrogen 16 mg/dL (8-23); Carbon Dioxide 25 mmol/L (22-29); Chloride 88 mmol/L (98-107); Creatine Phosphokinase 111 U/L (26-192); Globulin 3.2 g/dL (1.3-4.6); Glucose 163 mg/dL (65-115); Lipase 35 U/L (13-60); Osmolality Calculated 271 mOsm/kg (285-295); Potassium 3.7 mmol/L (3.5-5.1); Sodium 128 mmol/L (136-145); Total Bilirubin 0.6 mg/dL (0.15-1.2); Total Protein 6.9 g/dL (6.6-8.7)
[2023-12-10 12:29] LABS: Creatinine Clr Calc Pharmacy 29.1257
[2023-12-10 13:35] LABS: Erythrocyte Sedimentation Rate 120 mm/hr (0-15)
[2023-12-10] MEDS: nicardipine 20 MG/200 ML PREMIX 75 MG IV (13:37)
[2023-12-10] MEDS: sodium chloride 0.9% 1,000 ML 999 ML IV (13:44)
[2023-12-10 13:47] LABS: C Reactive Protein 16.9 mg/L (0.0-4.9)
--- NOTE | 2023-12-10 13:52 | ECG_ITS ---
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 Measurements Intervals [place] Rate: 109 P: 0 WA: 0 QRS: -49 QRSD: 83 T: -19 QT: 301 QTc: 405 Interpretive Statements ATRIAL FIBRILLATION WITH RAPID VENTRICULAR RESPONSE POSSIBLE RIGHT VENTRICULAR CONDUCTION DELAY [RSR (QR) IN V1/V2] LEFT ANTERIOR FASCICULAR BLOCK [QRS AXIS <= -45, QR IN I, RS IN II] SEPTAL MYOCARDIAL INFARCTION , OF INDETERMINATE AGE [40+ ms Q WAVE IN V1/V2] Compared to ECG 12/10/2023 07:53:20 Left anterior fascicular block now present Left-axis deviation no longer present T-wave abnormality no longer present Possible ischemia no longer present Myocardial infarct finding still present Electronically Signed On 12-10-2023 15:08:23 CDT by Chris Eckert M.D. [id number]
[2023-12-10] MEDS: iohexol 350 mg/mL 500 mL Btl (per mL) IV ×2 (15:19→15:20)
[2023-12-10 15:53] LABS: Adenovirus Not Detected (NOT DETECT); Chlamydia Pneumoniae Not Detected (NOT DETECT); Coronavirus 229E,HKU1,NL63,OC4 Not Detected (NOT DETECT); Human Metapneumovirus Not Detected (NOT DETECT); Human Rhinovirus/Enterovirus Not Detected (NOT DETECT); Influenza A Not Detected (NOT DETECT); Influenza A H1 Not Detected (NOT DETECT); Influenza A H1-2009 Not Detected (NOT DETECT); Influenza A H3 Not Detected (NOT DETECT); Influenza B Not Detected (NOT DETECT); Mycoplasma Pneumoniae Not Detected (NOT DETECT); Parainfluenza Virus Type 1 Not Detected (NOT DETECT); Parainfluenza Virus Type 2 Not Detected (NOT DETECT); Parainfluenza Virus Type 3 Not Detected (NOT DETECT); Parainfluenza Virus Type 4 Not Detected (NOT DETECT); Respiratory Syncytial Virus A Not Detected (NOT DETECT); Respiratory Syncytial Virus B Not Detected (NOT DETECT); SARS-COV-2 Not Detected (NOT DETECT)
[2023-12-10 15:55] LABS: Troponin 5 6HR 34.13 ng/L (0-10); Troponin 5 6HR Delta 8.13 ng/L (0-12)
[2023-12-10 17:08] LABS: Glucose Point of Care 137 mg/dL (70-110)
[2023-12-10] MEDS: nicardipine 20 MG/200 ML PREMIX 100 MG IV (17:11)
[2023-12-10] MEDS: ketorolac 30 mg/mL INJ 15 MG IVP (18:05)
== END 2023-12-10 23:13 | disposition short-term general hospital (02) ==
PROVIDERS: Emergency Provider Family Medicine; PCP Family Medicine
DX: A41.9 Sepsis, unspecified organism (principal); R41.82 Altered mental status, unspecified; Z11.52 Encounter for screening for COVID-19; I11.0 Hypertensive heart disease with heart failure; I50.9 Heart failure, unspecified
CPT/HCPCS: 36415; 36416; 36600; 70450; 70496; 70498; 71045; 71275; 74177; 80051; 80053; 80306; 81003; 81015; 82330; 82550; 82805; 82962; 83605; 83690; 84484; 85025; 85610; 85651; 85730; 86140; 87040; 87486; 87581; 87633; 93005; 96365; 96366; 96367; 96375; 96376; 99291; J0131; J1885; J2185; J3370; J7030; J7050